=== PATIENT | male | born 1995 | race Caucasian/White ===

== ENCOUNTER 2023-08-18 18:46 | Emergency (ER) | payer BC ==
[2023-08-18] MEDS: Ketorolac 30 MG/ML SDV IVPUSH ONE (19:14)
[2023-08-18] MEDS: Sodium Chloride 0.9% 1,000 ML IV ONE (19:14)
[2023-08-18 19:25] LABS: BASOPHILS ABSOLUTE AUTO 0.05 10^3/uL (0.00-0.10); BASOPHILS PERCENT AUTO 0.7 % (0.0-1.0); EOSINOPHILS ABSOLUTE AUTO 0.16 10^3/uL (0.10-0.30); EOSINOPHILS PERCENT AUTO 2.3 % (1.0-3.0); HEMATOCRIT 49.2 % (40.0-52.0); HEMOGLOBIN 17.4 g/dL (13.0-17.0); IMMATURE GRAN ABSOLUTE AUTO 0.01 10^3/uL (0.00-0.50); IMMATURE GRAN PERCENT AUTO 0.1 % (0.0-5.0); LYMPHOCYTES ABSOLUTE AUTO 2.12 10^3/uL (1.00-4.00); LYMPHOCYTES PERCENT AUTO 30.3 % (20.0-40.0); MEAN CORPUSCULAR HEMOGLOBIN 29.8 pg (27.0-31.0); MEAN CORPUSCULAR HGB CONC 35.4 g/dL (32.0-36.0); MEAN CORPUSCULAR VOLUME 84.4 fL (82.0-92.0); MEAN PLATELET VOLUME 10.1 fL (7.4-10.4); MONOCYTES ABSOLUTE AUTO 0.82 10^3/uL (0.10-0.80); MONOCYTES PERCENT AUTO 11.7 % (2.0-8.0); NEUTROPHILS ABSOLUTE AUTO 3.84 10^3/uL (2.50-7.00); NEUTROPHILS PERCENT AUTO 54.9 % (50.0-70.0); PLATELET COUNT,PLT 313 10^3/uL (150-400); RED BLOOD CELL COUNT 5.83 10^6/uL (4.50-6.00); RED CELL DISTRIBUTION WIDTH 11.9 % (11.5-14.5)
[2023-08-18 19:28] LABS: BILIRUBIN,URINE NEGATIVE (NEGATIVE); COLOR,URINE DARK YELLOW (YELLOW); GLUCOSE,URINE NEGATIVE (NEGATIVE); KETONES,URINE NEGATIVE (NEGATIVE); LEUKOCYTE ESTERASE,URINE NEGATIVE (NEGATIVE); NITRITE,URINE NEGATIVE (NEGATIVE); OCCULT BLOOD,URINE NEGATIVE (NEGATIVE); PROTEIN,URINE NEGATIVE (NEGATIVE); UROBILINOGEN,URINE 0.2 E.U./dL (0.2-1.0)
[2023-08-18 19:41] LABS: ALBUMIN 4.12 g/dL (3.40-5.00); ANION GAP 15.3 mmol/L (5-15); BILIRUBIN TOTAL 0.4 mg/dL (0.2-1.0); CARBON DIOXIDE,CO2 25.4 mmol/L (21.0-32.0); CREATININE 0.79 mg/dL (0.51-1.17); EST CRCL DRUG DOSING (CG) 141.7 mL/min; POTASSIUM,K 3.7 mmol/L (3.5-5.1); PROTEIN TOTAL,TP 7.8 g/dL (6.4-8.2)
[2023-08-18 19:44] LABS: APPEARANCE,URINE SLIGHTLY CLOUDY (CLEAR)
== END 2023-08-18 20:38 | disposition home or self-care (01) ==
LOC: KA.ED 18:46
DX: R10.12 Left upper quadrant pain (principal); R10.9 Unspecified abdominal pain
CPT/HCPCS: 36415; 74176; 80053; 81003; 85025; 96374; 99284-25; J1885; J7030

== ENCOUNTER 2023-11-17 08:16 | Emergency (ER) | payer BC ==
[2023-11-17] MEDS ORDERED: Sodium Chloride 0.9% 10 ML Syringe FLUSH PRN (08:33)
[2023-11-17 08:46] LABS: BASOPHILS ABSOLUTE AUTO 0.04 10^3/uL (0.00-0.10); BASOPHILS PERCENT AUTO 0.9 % (0.0-1.0); EOSINOPHILS PERCENT AUTO 2.3 % (1.0-3.0); HEMATOCRIT 48.2 % (40.0-52.0); HEMOGLOBIN 16.6 g/dL (13.0-17.0); LYMPHOCYTES ABSOLUTE AUTO 1.49 10^3/uL (1.00-4.00); LYMPHOCYTES PERCENT AUTO 34.6 % (20.0-40.0); MEAN CORPUSCULAR HEMOGLOBIN 29.9 pg (27.0-31.0); MEAN CORPUSCULAR HGB CONC 34.4 g/dL (32.0-36.0); MEAN CORPUSCULAR VOLUME 86.7 fL (82.0-92.0); MEAN PLATELET VOLUME 9.9 fL (7.4-10.4); MONOCYTES ABSOLUTE AUTO 0.57 10^3/uL (0.10-0.80); MONOCYTES PERCENT AUTO 13.2 % (2.0-8.0); NEUTROPHILS ABSOLUTE AUTO 2.11 10^3/uL (2.50-7.00); PLATELET COUNT,PLT 244 10^3/uL (150-400); RED BLOOD CELL COUNT 5.56 10^6/uL (4.50-6.00); WHITE BLOOD CELL COUNT,WBC 4.31 10^3/uL (5.00-10.00)
[2023-11-17] MEDS: Ondansetron 4 MG/2 ML SDV IVPUSH ONE (08:55)
[2023-11-17] MEDS: Sodium Chloride 0.9% 1,000 ML IV ONE (08:55)
[2023-11-17 09:01] LABS: ALBUMIN 3.8 g/dL (3.40-5.00); ANION GAP 10.7 mmol/L (5-15); BILIRUBIN TOTAL 0.5 mg/dL (0.2-1.0); CARBON DIOXIDE,CO2 28.3 mmol/L (21.0-32.0); CREATININE 0.79 mg/dL (0.51-1.17); EST CRCL DRUG DOSING (CG) 140.46 mL/min; PROTEIN TOTAL,TP 7.2 g/dL (6.4-8.2)
[2023-11-17 09:40] LABS: AMYLASE 60 U/L (25-125); LIPASE 60 U/L (16-77)
[2023-11-17] MEDS: Sodium Chloride 0.9% 50 ML IV SCH (10:09)
[2023-11-17] MEDS: Iopamidol 755 Mg/ML 100 ML Bottle IV ONE (10:09)
[2023-11-17 10:49] LABS: APPEARANCE,URINE CLEAR (CLEAR); BILIRUBIN,URINE NEGATIVE (NEGATIVE); COLOR,URINE YELLOW (YELLOW); GLUCOSE,URINE NEGATIVE (NEGATIVE); KETONES,URINE NEGATIVE (NEGATIVE); LEUKOCYTE ESTERASE,URINE NEGATIVE (NEGATIVE); NITRITE,URINE NEGATIVE (NEGATIVE); OCCULT BLOOD,URINE NEGATIVE (NEGATIVE); PH,URINE 6.5 (5.0-9.0); PROTEIN,URINE NEGATIVE (NEGATIVE); UROBILINOGEN,URINE 0.2 E.U./dL (0.2-1.0)
[2023-11-17] MEDS: Dicyclomine 20 MG/2 ML SDV IM ONE (11:07)
== END 2023-11-17 11:27 | disposition home or self-care (01) ==
LOC: KA.ED 08:16
DX: R11.2 Nausea with vomiting, unspecified (principal); R10.31 Right lower quadrant pain; Z91.018 Allergy to other foods
CPT/HCPCS: 74177; 80053; 81003; 82150; 83605; 83690; 85025; 96361; 96372; 96374; 99284-25; J0500; J2405; J3490; J7030; Q9967